=== PATIENT | female | born 1955 | race Caucasian/White ===

== ENCOUNTER 2017-04-21 09:37 | Day surgery (SDC) | payer BC ==
[~2017-04-21] VITALS: Ht 165.1 cm; Wt 60.8 kg
--- NOTE | ~2017-04-21 | EGD ---
EGD REPORT [facility] [address] [id number] NAME: CECILE TORRES : 59 STATUS : REG [facility] [place] PAT#: [id number] AGE: 61 ADM/REG DATE : 04/21/17 MR#: [id number] REPORT SERV DATE: 04/21/17 DICTATED BY: REAGAN IRVING DATE: 04/21/17 REPORT STATUS : Draft TRANSCRIBED BY: [employer] DATE: 04/21/17 [facility] Patient Name: Cecile Torres Date of : 1955 Attending MD: REAGAN IRVING MD Procedure Date No Time: 04/21/2017 Procedure: Colonoscopy Indications: FH of Colon Cancer -distant relative, FH of Colonic Polyps - 1st degree relative Referring MD: FLORY TOWNSEND II Medicines: as per anesthesia Complications: No immediate complications. Procedure: Pre-Anesthesia Assessment: - ASA Grade Assessment: II - A patient with mild systemic disease. After I obtained informed consent, the scope was passed under direct vision. Throughout the procedure, the patient's blood pressure, pulse, and oxygen saturations were monitored continuously. The [facility] [id number] was introduced through the anus and advanced to the cecum, identified by appendiceal orifice and ileocecal valve. The colonoscopy was performed without difficulty. The patient tolerated the procedure. The quality of the bowel preparation was adequate to identify polyps. Findings: The perianal and digital rectal examinations were normal. A few medium-mouthed diverticula were found in the sigmoid colon. Impression: - Diverticulosis in the sigmoid colon. Recommendation: - Repeat colonoscopy in 5 years for surveillance. Procedure Code(s): --- Professional --- 36069, Colonoscopy, flexible, proximal to splenic flexure; diagnostic, with or without collection of specimen(s) by brushing or washing, with or without colon decompression (separate procedure) Diagnosis Code(s): --- Professional --- K57.30, Diverticulosis of large intestine without perforation or abscess without bleeding Z80.0, Family history of malignant neoplasm of digestive organs Z83.71, Family history of colonic polyps EGD REPORT [place] [address] [id number] NAME: CECILE TORRES : [birth year] STATUS : REG [facility] [place] PAT#: [id number] AGE: 61 ADM/REG DATE : 04/21/17 MR#: [id number] REPORT SERV DATE: 04/21/17 DICTATED BY: REAGAN IRVING. DATE: 04/21/17 REPORT STATUS : Draft TRANSCRIBED BY: [employer] DATE: 04/21/17 CPT copyright 2013 [employer]. All rights reserved. The codes documented in this report are preliminary and upon hand binder cutter review may be revised to meet current compliance requirements. REAGAN IRVING MD 04/21/2017 12:29 PM This report has been signed electronically. Number of Addenda: 0 Note Initiated On: 04/21/2017 11:58 AM Scope Withdrawal Time 0 hours 8 minutes 0 seconds [facility] [address] [id number]
[~2017-04-21 09:37] MED LIST: ASA5GR PO; ATV1 PO; CITRACAL PO; CITRUCEL500 MG PO; GAS-X PO; METANX PO; MINIVELLE1 EAC1 TOP; PROZAC PO; REST15 PO; ZYP5 PO
== END 2017-04-21 23:59 | disposition home or self-care (01) ==
LOC: DMU 09:37
PROVIDERS: Internal Medicine Gastroenterology
PROC: 0DJD8ZZ Inspection of Lower Intestinal Tract, Via Natural or Artificial Opening Endoscopic (ICD-10-PCS; principal; 2017-04-21 11:00)
DX: Z12.11 Encounter for screening for malignant neoplasm of colon (principal); F41.9 Anxiety disorder, unspecified; F32.9 Major depressive disorder, single episode, unspecified; K57.30 Diverticulosis of large intestine without perforation or abscess without bleeding; Z83.71 Family history of colonic polyps; Z90.89 Acquired absence of other organs; Z90.49 Acquired absence of other specified parts of digestive tract; Z90.710 Acquired absence of both cervix and uterus; Z88.8 Allergy status to other drugs, medicaments and biological substances; Z79.82 Long term (current) use of aspirin; Z79.899 Other long term (current) drug therapy